=== PATIENT | female | born 1965 | race Caucasian/White ===

== ENCOUNTER 2017-05-16 11:08 | Emergency (ER) | payer MEDICAID, OTHER ==
[~2017-05-16] VITALS: Ht 157.5 cm; Wt 68.5 kg
[2017-05-16 11:12] VITALS: Ht 157.5 cm; Wt 68.5 kg
--- NOTE | 2017-05-16 11:36 | EN ---
Date/Time of Note Date/Time of Note DATE: 05/16/17 TIME: 11:34 ER Progress Note I have seen and evaluated the patient along with the PA and/or HEAD SHIPPER provider. I agree with the evaluation and plan of care. Please see their documentation for full ER course and evaluation. In short: 51-year-old female presents with right submandibular swelling status post dental extraction 2 weeks ago. Patient denies any fevers or chills or difficulty swallowing, no significant progression of size. On exam: The patient has a large mass to the submandibular region on the right side. I am able to visualize the molar dental removal site and able to express material through this site by pushing on the submandibular region. Assessment and plan: The patient's clinical exam is very consistent with likely submandibular abscess secondary to dental extraction. The patient does have active draining. I recommend starting her on Augmentin and calling ENT customer relations specialist to discuss possible incision and drainage at the bedside versus outpatient management. If they recommend outpatient management close follow-up with dentist would be appropriate. Given the patient does have active drainage with no evidence of deep space extension outpatient management may be appropriate. The patient still requires incision and drainage likely. The patient has no evidence of deep space infection, retropharyngeal abscess or Lemierre's disease no evidence of Juanjose angina. I do not believe that CT imaging is necessary at this point. Further management based on ENT recommendations. ZACK ALLISON MD May 16, 2017 11:36
--- NOTE | 2017-05-16 11:40 | ERD ---
ER Documentation Chief Complaint Date/Time DATE: 05/16/17 TIME: 11:36 Chief Complaint Complains of dental pain x 2 weeks HPI Patient is a 51-year-old female with no past medical history who presents to the ED with dental pain and a mass on her right side 2 week. Patient states that 2 weeks ago she had a molar removed and developed this lesion soon afterwards. She states that it has not changed in size. She states that the pain radiates to her right ear. Denies difficulty breathing or swallowing or speaking. Denies increase in salivation. Denies fever or chills. Denies chest pain or cough or shortness of breath. Denies headache or dizziness. Denies abdominal pain, nausea, vomiting or diarrhea. ROS All systems reviewed and are negative except as per history of present illness. Medications Home Meds Active Scripts Hydrocodone/Acetaminophen (Niles 5-325 Tablet) 1 Each Tablet, 1 TAB PO Q6H Y for PAIN, #5 TAB Prov:GINA LAMBERT PA-C 05/16/17 Amoxicillin/Potassium Clav (Amox-Clav 875-125 mg Tablet) 875-125 mg Tab, 1 TAB PO BID for 10 Days, #20 TAB Prov:GINA LAMBERT PA-C 05/16/17 PMhx/Soc Medical and Surgical Hx: pt denies Medical Hx, pt denies Surgical Hx History of Surgery: Yes (Dental) Anesthesia Reaction: No Hx Neurological Disorder: No Hx Respiratory Disorders: No Hx Cardiac Disorders: No Hx Psychiatric Problems: No Hx Miscellaneous Medical Probl: No Hx Alcohol Use: No Hx Substance Use: No Hx Tobacco Use: No Smoking Status: Never smoker FmHx Family History: No coronary disease, No diabetes, No other Physical Exam Vitals Vital Signs Date Time Temp Pulse Resp B/P Pulse Ox O2 Delivery O2 Flow Rate FiO2 05/16/17 11:12 98.3 89 20 121/61 95 Physical Exam GENERAL: Well-developed, well-nourished female. Appears in no acute distress. HEAD: Normocephalic, atraumatic. EYES: Pupils are equally reactive bilaterally. EOMs grossly intact. No conjunctival erythema. ENT: Moist mucous membranes. No uvula deviation. No kissing tonsils. No exudates. Large submandibular abscess on the right side. Pus able to be expressed in the right molar that was extracted. NECK: Supple. No lymphadenopathy or thyromegaly. No meningismus. negative kernig. negative brudinski. LUNG: Clear to auscultation bilaterally. No rhonchi, wheezing, rales or coarse breath sounds. HEART: Regular rate and rhythm. No murmurs, rubs or gallops. Extremities: Equal pulses bilaterally. No peripheral clubbing, cyanosis or edema. No unilateral leg swelling. NEUROLOGIC: Alert and oriented. Moving all four extremities. 5/5 strength in all extremities. Normal speech. Steady gait. SKIN: Normal color. Warm and dry. No rashes or lesions. Capillary refill < 2 seconds Procedures/MDM ER COURSE: I kept the patient and/or family informed of laboratory and diagnostic imaging results throughout the emergency room course. MEDICAL DECISION MAKING: This is a 51-year-old female who presents with dental pain and mass 2 weeks on her right sided face. Vital signs were reviewed. Patient is afebrile. Patient is not hypoxic. Patient is not toxic or ill-appearing. I consulted with my supervising physician Dr. Georges who came to examine patient at bedside. Patient has a submandibular abscess. Patient does not need a CT scan at this time, risks outweigh the benefits. Dr. Georges agrees with this plan that no CT scan is needed. Patient will be started on Augmentin and ENT will be called to discuss the possibility of incision and drainage at bedside versus outpatient management. I spoke with Dr Garcia who stated that patient needs to see a dentist and that no procedure will be done in the ED. patient will have close follow-up with a dentist. I have low suspicion for deep space infection. Low suspicion for retropharyngeal abscess or Juanjose angina. DISCHARGE: At this time, patient is stable for discharge and outpatient management with no new complaints during the ER course. Patient was sent home with Augmentin and Niles and to follow-up with her dentist tomorrow.. Patient will be discharged home with instructions to recheck for new or worsening symptoms such as fever, nausea, weakness, LOC and to follow up with primary care in the next 1-2 days. Patient was advised to return to the ER for any new or worsening symptoms. Plan was discussed and patient and/or family understands and agrees. Home instructions were given. Departure Diagnosis: Primary Impression: Submandibular abscess Condition: Stable GINA LAMBERT PA-C May 16, 2017 11:40
[2017-05-16] MEDS ORDERED: HYDR-906 PO (12:06)
[2017-05-16] MEDS ORDERED: AMOX1TAB10 PO (12:06)
== END 2017-05-16 12:18 | disposition home or self-care (01) ==
LOC: FTE 11:08
DX: K12.2 Cellulitis and abscess of mouth (principal)
CPT/HCPCS: 99284